=== PATIENT | male | born 1960 | race Caucasian/White ===

== ENCOUNTER 2020-01-18 10:36 | Inpatient (IN) ==
[2020-01-18 11:16] LABS: Basophils # 0.1 10*3/uL (0.0-0.2); Basophils % 0.3 % (0.0-0.8); Eosinophils # 0.1 10*3/uL (0.0-0.87); Eosinophils % 0.4 % (0.00-10.9); Hematocrit 31.6 VOL% (42.0-52.0); Hemoglobin 10.9 GM/DL (14.0-18.0); Immature Granulocytes % 1.9 %; Immature Granulocytes Absolute 0.36 #; Lymphocytes # 1.6 10*3/uL (1.4-4.0); Lymphocytes % 8.5 % (21.2-54.2); Mean Corpuscular HGB Conc 34.5 GM/DL (32-36); Mean Platelet Volume 9.7 FL (9.6-12.0); Monocytes % 10.5 % (1.7-12.7); Neutrophils % 78.4 % (38.7-73.9); Platelet Count 433 T/CUMM (130-400); Red Blood Count 3.55 MC/CUMM (3.8-5.5); Red Cell Distribution Width 21.7 % (9.3-17.3); White Blood Count 18.9 T/CUMM (4-12)
[2020-01-18 11:47] LABS: Albumin 1.7 G/DL (3.4-5.0); Calcium 8.8 MG/DL (8.5-10.1); Osmolality,Calculated 248.5 MOS/KG (273-304); Total Protein 6.9 G/DL (6.4-8.3)
[2020-01-18] MEDS ORDERED: MORPHINE 4 MG/1 ML VIAL IV STA (12:04)
[2020-01-18] MEDS ORDERED: SODIUM CHLORIDE 0.9% 1,000 ML IV STA (12:04)
[2020-01-18] MEDS ORDERED: ONDANSETRON 4 MG/2 ML VIAL IV STA (12:04)
[2020-01-18] MEDS ORDERED: cefTRIAXone 2,000 MG in SODIUM CHLORIDE 0.9% 100 ML IV STA (12:06)
[2020-01-18] MEDS ORDERED: PANTOPRAZOLE 40 MG VIAL IV STA (12:06)
[2020-01-18] MEDS ORDERED: methylPREDNISolone SOD SUC 125 MG/2 ML VIAL IV STA (12:11)
[2020-01-18 12:19] LABS: Apearance,Urine CLEAR (Clear); Bacteria,Urine Occasional /HPF (Few); Bilirubin,Urine Moderate mg/dL (Negative); Blood, Urine Negative (Negative); Glucose,Urine (UA) Negative (Negative); Ketones,Urine 5 mg/dL (Negative); Mucus,Urine Many /LPF (Occasional); Nitrite,Urine Negative (Negative); Protein,Urine 30 MG/DL; RBC,Urine 1 /HPF (0-4); Squamous Epithelial Cell,Urine Occasional /HPF (0-10); Urine Color Orange (Yellow); Urine Specific Gravity 1.025 (1.001-1.035)
[2020-01-18] MEDS ORDERED: GLUCAGON 1 MG VIAL IM PRN (14:14)
[2020-01-18] MEDS ORDERED: DEXTROSE 50% 25 GM/50 ML VIAL IV PRN (14:14)
[2020-01-18] MEDS ORDERED: hydrALAZINE 20 MG/1 ML VIAL IV PRN (14:14)
[2020-01-18] MEDS ORDERED: guaiFENesin/DM ER 600-30 MG TABLET PO PRN (14:14)
[2020-01-18] MEDS ORDERED: FUROSEMIDE 40 MG/4 ML VIAL IV STA ×2 (14:20→14:34)
[2020-01-18 14:54] LABS: HDL Cholesterol < 10 MG/DL (40-60); Triglycerides 208 MG/DL (2-150); VLDL CHOLESTEROL 41.6 MG/DL
[2020-01-18 15:09] LABS: INR 2.4
[2020-01-18 15:10] LABS: PT Patient Result 24.5 SECS (9.8-11.9); Partial Thromboplastin Time 44.4 SECS (23.9-33.8)
[2020-01-18 16:16] LABS: ABG Base Excess 2.3 MMOL/L (-2.5-2.5); ABG HCO3 25.7 MMOL/L (20-26); ABG Oxygen Saturation 94.8 % (95-100); ABG PCO2 35.4 MM HG (35-48); ABG PH 7.478 (7.35-7.45); ABG TCO2 26.7 MMOL/L (23-27); Allen Test Positive; Pt O2 Delivery Device Room Air
[2020-01-18] MEDS: MEROPENEM 500 MG in SODIUM CHLORIDE 0.9% 100 ML IV SCH ×2 (17:19→23:23)
[2020-01-18] MEDS: PROMETHAZINE 25 MG/1 ML VIAL IM PRN (17:19)
[2020-01-18] MEDS: ONDANSETRON 4 MG/2 ML VIAL IV PRN (23:21)
[2020-01-19 00:41] LABS: Basophils # 0.1 10*3/uL (0.0-0.2); Basophils % 0.3 % (0.0-0.8); Eosinophils % 0.2 % (0.00-10.9); Hematocrit 31.6 VOL% (42.0-52.0); Hemoglobin 10.8 GM/DL (14.0-18.0); Immature Granulocytes % 1.6 %; Immature Granulocytes Absolute 0.32 #; Lymphocytes # 1.4 10*3/uL (1.4-4.0); Lymphocytes % 7.3 % (21.2-54.2); Mean Corpuscular HGB Conc 34.2 GM/DL (32-36); Mean Corpuscular Volume 90.3 FL (87-102); Mean Platelet Volume 9.5 FL (9.6-12.0); Monocytes % 9.6 % (1.7-12.7); Platelet Count 368 T/CUMM (130-400); Red Cell Distribution Width 22.4 % (9.3-17.3); White Blood Count 19.5 T/CUMM (4-12)
[2020-01-19 01:05] LABS: Calcium 8.6 MG/DL (8.5-10.1); Osmolality,Calculated 250.4 MOS/KG (273-304)
[2020-01-19 04:10] LABS: Anisocytosis 1+; Hypochromasia 1+; Platelet Estimate Normal; Target Cells Few
[2020-01-19] MEDS: MEROPENEM 500 MG in SODIUM CHLORIDE 0.9% 100 ML IV SCH ×4 (05:07→23:47)
[2020-01-19] MEDS: ONDANSETRON 4 MG/2 ML VIAL IV PRN ×3 (05:20→20:05)
[2020-01-19 07:45] LABS: Albumin 1.7 G/DL (3.4-5.0); Bilirubin,Direct 9.73 MG/DL (0.0-0.20); Bilirubin,Indirect 1.9 MG/DL (0.0-1.0); Bilirubin,Total 11.6 MG/DL (0.2-1.0); Total Protein 6.4 G/DL (6.4-8.3)
[2020-01-19] MEDS: FUROSEMIDE 40 MG/4 ML VIAL IV SCH ×2 (09:22→15:54)
[2020-01-19] MEDS: PANTOPRAZOLE 40 MG TABLET PO SCH (09:23)
[2020-01-19] MEDS: PROMETHAZINE 25 MG/1 ML VIAL IM PRN (09:32)
[2020-01-19] MEDS ORDERED: LOPERAMIDE 2 MG CAPSULE PO PRN ×2 (12:28)
[2020-01-19] MEDS ORDERED: MYLANTA/LIDO VISC 2:1 300 ML BOTTLE SWISH/SWAL PRN (12:28)
[2020-01-19] MEDS ORDERED: guaiFENesin 200 MG/10 ML UDCUP PO PRN (12:28)
[2020-01-19] MEDS ORDERED: ACETAMINOPHEN 325 MG TABLET PO PRN (12:28)
[2020-01-19] MEDS ORDERED: ALPRAZolam 0.25 MG TABLET PO PRN (12:28)
[2020-01-19] MEDS ORDERED: ALUMINUM/MAGNES/SIMETH MAX STR 30 ML UDCUP PO PRN (12:28)
[2020-01-19] MEDS ORDERED: MAGNESIUM HYDROXIDE SUSP 30 ML UDCUP PO PRN (12:28)
[2020-01-19] MEDS ORDERED: TEMAZEPAM 7.5 MG CAPSULE PO PRN (12:28)
[2020-01-19] MEDS ORDERED: chlorproMAZINE INJ 25 MG in SODIUM CHLORIDE 0.9% 100 ML IV PRN (12:28)
[2020-01-19] MEDS ORDERED: LACTULOSE 20 GM/30 ML UDCUP PO PRN (12:28)
[2020-01-19] MEDS ORDERED: traMADol 50 MG TABLET PO PRN (12:28)
[2020-01-19] MEDS ORDERED: diphenhydrAMINE CAP 25 MG CAPSULE PO PRN (12:28)
[2020-01-19] MEDS ORDERED: MYLANTA/LIDO VISC 2:1 300 ML BOTTLE SWISH/SPIT PRN (12:28)
[2020-01-19] MEDS ORDERED: PROMETHAZINE INJ 25 MG in SODIUM CHLORIDE 0.9% 50 ML IV PRN (12:28)
[2020-01-19] MEDS: ALBUTEROL 2.5 MG/3 ML NEB RESP TX SCH ×2 (13:13→20:16)
[2020-01-19] MEDS: HYDROmorphone 2 MG/1 ML VIAL IV PRN ×2 (15:55→20:06)
[2020-01-20] MEDS: ALBUTEROL 2.5 MG/3 ML NEB RESP TX SCH ×4 (00:50→19:19)
[2020-01-20] MEDS: MEROPENEM 500 MG in SODIUM CHLORIDE 0.9% 100 ML IV SCH ×4 (04:21→22:56)
[2020-01-20 06:12] LABS: Calcium 8.6 MG/DL (8.5-10.1); Osmolality,Calculated 257.1 MOS/KG (273-304)
[2020-01-20 06:20] LABS: Basophils # 0.1 10*3/uL (0.0-0.2); Basophils % 0.3 % (0.0-0.8); Eosinophils % 0.1 % (0.00-10.9); Hematocrit 34.5 VOL% (42.0-52.0); Hemoglobin 11.4 GM/DL (14.0-18.0); Immature Granulocytes % 1.7 %; Immature Granulocytes Absolute 0.33 #; Lymphocytes # 1.1 10*3/uL (1.4-4.0); Lymphocytes % 5.7 % (21.2-54.2); Mean Platelet Volume 9.8 FL (9.6-12.0); Monocytes % 7.3 % (1.7-12.7); Neutrophils % 84.9 % (38.7-73.9); Platelet Count 405 T/CUMM (130-400); Red Blood Count 3.71 MC/CUMM (3.8-5.5); Red Cell Distribution Width 22.9 % (9.3-17.3)
[2020-01-20 06:34] LABS: Albumin 1.6 G/DL (3.4-5.0); Bilirubin,Direct 9.49 MG/DL (0.0-0.20); Bilirubin,Indirect 2.1 MG/DL (0.0-1.0); Bilirubin,Total 11.6 MG/DL (0.2-1.0); Total Protein 6.9 G/DL (6.4-8.3)
[2020-01-20 06:48] LABS: Hypochromasia 1+; Platelet Estimate Adequate; Target Cells Few
[2020-01-20] MEDS: FUROSEMIDE 40 MG/4 ML VIAL IV SCH (09:29)
[2020-01-20] MEDS: ONDANSETRON 4 MG/2 ML VIAL IV PRN (09:30)
[2020-01-20 09:38] LABS: INR 3.6; PT Patient Result 35.9 SECS (9.8-11.9)
[2020-01-20] MEDS ORDERED: SODIUM CHLORIDE 0.9% 1,000 ML IV PRN (10:17)
[2020-01-20] MEDS: PANTOPRAZOLE 40 MG TABLET PO SCH (10:22)
[2020-01-20] MEDS: PROMETHAZINE INJ 25 MG in SODIUM CHLORIDE 0.9% 50 ML IV PRN ×2 (14:06→19:52)
[2020-01-20] MEDS: HYDROmorphone 2 MG/1 ML VIAL IV PRN ×2 (15:25→19:52)
[2020-01-21] MEDS: ALBUTEROL 2.5 MG/3 ML NEB RESP TX SCH ×2 (01:57→08:15)
[2020-01-21] MEDS: HYDROmorphone 2 MG/1 ML VIAL IV PRN ×3 (02:38→18:42)
[2020-01-21] MEDS: PROMETHAZINE INJ 25 MG in SODIUM CHLORIDE 0.9% 50 ML IV PRN (02:40)
[2020-01-21 05:25] LABS: Basophils % 0.2 % (0.0-0.8); Eosinophils # 0.2 10*3/uL (0.0-0.87); Eosinophils % 0.9 % (0.00-10.9); Hematocrit 30.5 VOL% (42.0-52.0); Hemoglobin 10.3 GM/DL (14.0-18.0); Immature Granulocytes % 1.7 %; Immature Granulocytes Absolute 0.29 #; Lymphocytes % 5.8 % (21.2-54.2); Mean Corpuscular HGB Conc 33.8 GM/DL (32-36); Mean Corpuscular Volume 91.3 FL (87-102); Monocytes % 9.2 % (1.7-12.7); Neutrophils % 82.2 % (38.7-73.9); Platelet Count 322 T/CUMM (130-400); Red Blood Count 3.34 MC/CUMM (3.8-5.5); Red Cell Distribution Width 23.2 % (9.3-17.3); White Blood Count 17.3 T/CUMM (4-12)
[2020-01-21] MEDS: MEROPENEM 500 MG in SODIUM CHLORIDE 0.9% 100 ML IV SCH ×3 (05:31→17:25)
[2020-01-21 05:33] LABS: Calcium 8.5 MG/DL (8.5-10.1); Osmolality,Calculated 259.9 MOS/KG (273-304)
[2020-01-21 06:03] LABS: Hypochromasia 1+; Target Cells Few
[2020-01-21 06:04] LABS: Anisocytosis 1+; Platelet Estimate Normal; Polychromasia Slight
[2020-01-21] MEDS ORDERED: ALBUTEROL 2.5 MG/3 ML NEB RESP TX PRN (08:21)
[2020-01-21] MEDS: PANTOPRAZOLE 40 MG TABLET PO SCH (08:53)
[2020-01-21] MEDS ORDERED: fentaNYL 50 MCG/HR PATCH TRANSDERM SCH (09:00)
[2020-01-21] MEDS ORDERED: MINERAL OIL 30 ML UDCUP PO ONE (17:00)
[2020-01-21] MEDS: POLYETHYLENE GLYCOL POWDER 17 GM PACK PO SCH (21:23)
[2020-01-21] MEDS: DOCUSATE SODIUM 100 MG CAPSULE PO SCH (21:24)
[2020-01-21] MEDS: LACTULOSE 20 GM/30 ML UDCUP PO SCH (21:24)
[2020-01-22] MEDS: MEROPENEM 500 MG in SODIUM CHLORIDE 0.9% 100 ML IV SCH ×3 (00:15→11:17)
[2020-01-22] MEDS: PANTOPRAZOLE 40 MG TABLET PO SCH (09:39)
[2020-01-22] MEDS: DOCUSATE SODIUM 100 MG CAPSULE PO SCH (09:40)
[2020-01-22] MEDS: LACTULOSE 20 GM/30 ML UDCUP PO SCH (09:40)
[2020-01-22] MEDS: POLYETHYLENE GLYCOL POWDER 17 GM PACK PO SCH (09:40)
[2020-01-22 11:08] VITALS: BP 107/68
== END 2020-01-22 13:39 | disposition hospice, home (50) | DRG 435 ==
LOC: N.ED 10:36 → SUPCPDRO 14:14 → SUATTDRO 14:14 → N.EDINP 14:14 → N.4E 16:00
PROVIDERS: ADMIT Family Medicine; ATTEND Hospitalist